=== PATIENT | female | born 1970 | race African-American/Black ===

== ENCOUNTER 2019-05-06 07:50 | Day surgery (SDC) | payer BC, MEDICAID ==
[~2019-05-06 07:50] MED LIST: Midazolam 1 MG/ML 2 ML SDV ONE; Propofol 200 MG/20 ML SDV ONE; fentaNYL 100 MCG/2 ML SDV ONE
[2019-05-06] MEDS ORDERED: Acetaminophen 500 MG Tab PO ONE (08:30)
[2019-05-06] MEDS ORDERED: Topiramate 25 MG Tab PO ONE (08:35)
[2019-05-06] MEDS ORDERED: Lidocaine 1% with EPINEPHrine 1:100,000 50 ML MDV ONE (08:36)
[2019-05-06] MEDS ORDERED: Bupivacaine 0.5% 50 ML MDV ONE (08:36)
[2019-05-06] MEDS ORDERED: Dextrose 5%-Lactated Ringers 1,000 ML IV SCH (09:15)
[2019-05-06] MEDS ORDERED: Albuterol/Ipratropium 3.0-0.5 MG/3 ML Neb Soln NEB ONE (09:15)
[2019-05-06] MEDS ORDERED: fentaNYL 100 MCG/2 ML SDV IVPUSH ONE (10:58)
[2019-05-06] MEDS ORDERED: diphenhydrAMINE 25 MG Cap PO ONE (12:11)
--- NOTE | 2019-05-16 11:30 | OR ---
DATE OF PROCEDURE: 05/06/2019 SURGEON: Ton Moreira MD PREOPERATIVE DIAGNOSIS: Right inguinal lymphadenopathy. POSTOPERATIVE DIAGNOSIS: Right inguinal lymphadenopathy. OPERATIVE PROCEDURE: Right inguinal lymph node biopsy ([id number]). ANESTHESIA: Local plus IV sedation. INDICATION FOR PROCEDURE: This is a 48-year-old presenting with an area of lymphadenopathy involving the right inguinal area. The patient's history is notable for roughly 20-pound weight loss over roughly the last 2 months. She does also have a history of tuberculosis and treated with a course of antituberculosis medications in 2010. The plan is to proceed with a right inguinal exploration and excision of series of enlarged lymph nodes for histologic, as well as microbiologic workup. Potential risks including bleeding and infection were reviewed, and the patient wishes to proceed. DETAILS OF PROCEDURE: The patient was taken to the operating room and placed in supine position. IV sedation was administered, after the right groin and surrounding areas were prepped and draped. The right inguinal area was anesthetized with 1% lidocaine. An incision was made in line with the inguinal crease and carried down through the skin and subcutaneous tissue, and through the superficial fascia. A series of lymph nodes were then easily identified and a total of 4 lymph nodes were removed, the largest of which was roughly around 1 cm in size. These were removed by means of electrocautery dividing the lymphatic and vascular attachment nodes as they were encountered. Two of the lymph nodes were then bisected and portions of those nodes sent for full microbiologic workup, and the remaining of the ld tissue was sent for histologic evaluation. Minimal bleeding from the biopsy sites was seen. The incision was then closed with some 3-0 and 4-0 Vicryl stitch deep and Steri-Strips applied. The patient was taken to the recovery room in satisfactory condition. There were no evident complications. The plan will be to have the patient follow up with her primary provider, JACK Garcia, in 1 week and I will see her back on 05/18/2019. Ton Moreira MD /[id number]
== END 2019-05-06 13:30 | disposition home or self-care (01) ==
LOC: JP.SDS 07:50
PROVIDERS: ATTEND Surgery
DX: R59.0 Localized enlarged lymph nodes (principal); J45.909 Unspecified asthma, uncomplicated; Z91.040 Latex allergy status
CPT/HCPCS: 38531; 87015; 87070; 87102; 87116; 87205; 87206; 87220; 88305; 88341; 88342; 94640; A9270; J2250; J2704; J3010; J3490; J7121; J7620-GY

== ENCOUNTER 2019-12-06 10:50 | Emergency (ER) | payer MEDICAID ==
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
== END 2019-12-06 11:59 | disposition home or self-care (01) ==
LOC: JP.ED 10:50
DX: M25.511 Pain in right shoulder (principal); F19.982 Other psychoactive substance use, unspecified with psychoactive substance-induced sleep disorder; I10 Essential (primary) hypertension; J45.909 Unspecified asthma, uncomplicated; F41.9 Anxiety disorder, unspecified; Z88.0 Allergy status to penicillin; Z91.018 Allergy to other foods; Z91.040 Latex allergy status; Z91.012 Allergy to eggs; Z91.048 Other nonmedicinal substance allergy status; Z79.899 Other long term (current) drug therapy; Z98.890 Other specified postprocedural states
CPT/HCPCS: 99284

== ENCOUNTER 2020-01-25 16:02 | Emergency (ER) | payer MEDICAID | END 2020-01-25 17:11 | disposition left against medical advice (07) | LOC: JP.ED 16:02 | DX: Z53.21 Procedure and treatment not carried out due to patient leaving prior to being seen by health care provider (principal) ==

== ENCOUNTER 2020-02-29 17:13 | Emergency (ER) | payer MEDICAID ==
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
== END 2020-02-29 18:13 | disposition home or self-care (01) ==
LOC: JP.ED 17:13
DX: H60.13 Cellulitis of external ear, bilateral (principal); F41.9 Anxiety disorder, unspecified; I10 Essential (primary) hypertension; J45.909 Unspecified asthma, uncomplicated; Z91.040 Latex allergy status; Z88.0 Allergy status to penicillin; Z91.012 Allergy to eggs; Z91.018 Allergy to other foods; Z88.8 Allergy status to other drugs, medicaments and biological substances; Z90.49 Acquired absence of other specified parts of digestive tract; Z90.710 Acquired absence of both cervix and uterus; Z79.899 Other long term (current) drug therapy
CPT/HCPCS: 99283

== ENCOUNTER 2020-03-16 17:32 | Emergency (ER) | payer BC, MEDICAID ==
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
== END 2020-03-16 18:46 | disposition home or self-care (01) ==
LOC: JP.ED 17:32
DX: K13.79 Other lesions of oral mucosa (principal); F41.9 Anxiety disorder, unspecified; Z88.0 Allergy status to penicillin; Z91.040 Latex allergy status; Z88.8 Allergy status to other drugs, medicaments and biological substances; Z91.018 Allergy to other foods; Z91.012 Allergy to eggs; Z90.710 Acquired absence of both cervix and uterus; Z90.49 Acquired absence of other specified parts of digestive tract; Z79.899 Other long term (current) drug therapy
CPT/HCPCS: 99282

== ENCOUNTER 2020-05-27 20:48 | Emergency (ER) | payer MEDICAID ==
[2020-05-27] MEDS ORDERED: Sodium Chloride 0.9% 10 ML Syringe FLUSH PRN (21:27)
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
[2020-05-27] MEDS ORDERED: Sodium Chloride 0.9% 10 ML Syringe FLUSH ONE (21:43)
[2020-05-27] MEDS ORDERED: Sodium Chloride 0.9% 100 ML IV SCH (21:45)
[2020-05-27] MEDS ORDERED: Iopamidol 612 MG/ML 100 ML Bottle IV SCH (21:45)
[2020-05-27] MEDS ORDERED: Aluminum Hydroxide/Magnesium Hydroxide/Simethicone Susp 30 ML Cup PO ONE (22:14)
--- NOTE | 2020-05-27 22:47 | CRLCT ---
Indication: Right upper quadrant pain Technique: Contrast enhanced axial CT imaging through the abdomen and pelvis. 100 mL Isovue-300 contrast agent was administered intravenously. Sagittal and coronal reconstructions are provided. Comparison: CT abdomen pelvis with contrast 05/19/2019 Findings: No abnormalities are demonstrated relating to the liver, spleen, pancreas, adrenal glands, and kidneys. Cholecystectomy clips are noted. The portal vein is patent. The abdominal aorta is normal in caliber. There is no abdominal lymphadenopathy. Jennifer-en-Y gastric bypass changes are noted. There are few nonspecific prominent small-bowel loops in the mid abdomen, without evidence of bowel obstruction. The appendix is noninflamed. There is no colonic wall thickening, mesenteric edema, or intraperitoneal free fluid. Prominent fecal material is noted throughout the colon, suggesting constipation. The urinary bladder is unremarkable. The uterus is absent. There is no adnexal mass or pelvic lymphadenopathy. Degenerative changes are noted in the spine. There is mild level convex lumbar spinal curvature apex at L3. the included lung bases are clear. Impression: 1. No acute process demonstrated in the abdomen and pelvis. 2. Prominent colonic stool, suggesting constipation. Please note that all CT scans at this facility use dose modulation, iterative reconstruction, and/or weight-based dosing when appropriate to reduce radiation dose to as low as reasonably achievable. Dictated by Gayla Worrell MD @ May 27 2020 10:36PM Signed by Dr. Gayla Worrell @ May 27 2020 10:45PM
== END 2020-05-27 22:40 | disposition home or self-care (01) ==
LOC: JP.ED 20:48
DX: R14.3 Flatulence (principal); R19.7 Diarrhea, unspecified; I10 Essential (primary) hypertension; J45.909 Unspecified asthma, uncomplicated; G40.909 Epilepsy, unspecified, not intractable, without status epilepticus; Z86.73 Personal history of transient ischemic attack (TIA), and cerebral infarction without residual deficits; Z79.899 Other long term (current) drug therapy; Z91.048 Other nonmedicinal substance allergy status; Z91.040 Latex allergy status; Z88.0 Allergy status to penicillin; Z91.018 Allergy to other foods; Z91.012 Allergy to eggs
CPT/HCPCS: 36415; 74177; 80053; 81001; 83690; 85025; 99284; A9270; Q9967; 99283

== ENCOUNTER 2020-06-11 07:42 | Emergency (ER) | payer MEDICAID ==
[2020-06-11] MEDS ORDERED: Mupirocin Oint 22 GM Tube TOP ONE (08:40)
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
== END 2020-06-11 09:04 | disposition home or self-care (01) ==
LOC: JP.ED 07:42
DX: S80.812A Abrasion, left lower leg, initial encounter (principal); I10 Essential (primary) hypertension; J45.909 Unspecified asthma, uncomplicated; Z88.1 Allergy status to other antibiotic agents; Z91.040 Latex allergy status; Z88.8 Allergy status to other drugs, medicaments and biological substances; Z88.0 Allergy status to penicillin; Z91.012 Allergy to eggs; Z91.018 Allergy to other foods; Z79.899 Other long term (current) drug therapy; X58.XXXA Exposure to other specified factors, initial encounter
CPT/HCPCS: 99282; 99283; A9270-GY

== ENCOUNTER 2021-01-28 11:19 | Emergency (ER) | payer MEDICAID ==
[2021-01-28] MEDS ORDERED: Acetaminophen 500 MG Tab PO ONE (12:31)
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
[2021-01-28] MEDS ORDERED: Lisinopril 10 MG Tab PO ONE (13:29)
[2021-01-28] MEDS ORDERED: Hydrochlorothiazide 25 MG Tab PO ONE (13:30)
[2021-01-28] MEDS ORDERED: Potassium Chloride 20 MEQ Tab.ER PO ONE (14:04)
== END 2021-01-28 14:19 | disposition home or self-care (01) ==
LOC: JP.ED 11:19
DX: I10 Essential (primary) hypertension (principal); R60.0 Localized edema; I25.2 Old myocardial infarction; J45.909 Unspecified asthma, uncomplicated; K21.9 Gastro-esophageal reflux disease without esophagitis; M06.9 Rheumatoid arthritis, unspecified; Z91.018 Allergy to other foods; Z88.1 Allergy status to other antibiotic agents; Z88.7 Allergy status to serum and vaccine; Z88.8 Allergy status to other drugs, medicaments and biological substances; Z91.040 Latex allergy status; Z88.0 Allergy status to penicillin; Z91.012 Allergy to eggs; Z79.899 Other long term (current) drug therapy
CPT/HCPCS: 36415; 80048; 81001; 99284; A9270

== ENCOUNTER 2021-03-19 13:30 | Emergency (ER) | payer MEDICAID ==
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
== END 2021-03-19 15:46 | disposition home or self-care (01) ==
LOC: JP.ED 13:30
DX: M79.2 Neuralgia and neuritis, unspecified (principal); I10 Essential (primary) hypertension; I25.2 Old myocardial infarction; J45.909 Unspecified asthma, uncomplicated; M06.9 Rheumatoid arthritis, unspecified; Z88.7 Allergy status to serum and vaccine; Z91.018 Allergy to other foods; Z88.1 Allergy status to other antibiotic agents; Z88.8 Allergy status to other drugs, medicaments and biological substances; Z91.040 Latex allergy status; Z88.0 Allergy status to penicillin; Z91.012 Allergy to eggs; Z79.899 Other long term (current) drug therapy
CPT/HCPCS: 99283

== ENCOUNTER 2021-08-29 07:59 | Day surgery (SDC) | payer MEDICAID ==
[2021-08-29] MEDS: Lactated Ringers 1,000 ML IV SCH (08:12)
[2021-08-29] MEDS ORDERED: Propofol 200 MG/20 ML SDV ONE (09:27)
== END 2021-08-29 11:26 | disposition home or self-care (01) ==
LOC: JP.SDS 07:59
PROVIDERS: ATTEND Family Medicine
DX: Z12.11 Encounter for screening for malignant neoplasm of colon (principal); K29.70 Gastritis, unspecified, without bleeding; R13.10 Dysphagia, unspecified; K31.7 Polyp of stomach and duodenum; J45.909 Unspecified asthma, uncomplicated; Z86.73 Personal history of transient ischemic attack (TIA), and cerebral infarction without residual deficits; Z88.8 Allergy status to other drugs, medicaments and biological substances; Z98.84 Bariatric surgery status
CPT/HCPCS: J2250; J2704; J3010; J7120

== ENCOUNTER 2022-08-01 07:44 | Day surgery (SDC) | payer MEDICAID ==
[2022-08-01 08:28] LABS: A/G RATIO 0.8 (1.2-2.2); ALANINE AMINOTRANSFERASE,ALT 32 U/L (12-78); ALBUMIN 3.2 g/dL (3.4-5.0); ALKALINE PHOSPHATASE 188 U/L (46-116); ANION GAP 11.1 mmol/L (5.0-14.0); ASPARTATE AMNIOTRANSFERASE,AST 24 U/L (15-37); BILIRUBIN TOTAL 0.3 mg/dL (0.2-1.0); BLOOD UREA NITROGEN,BUN 12 mg/dL (7-18); CARBON DIOXIDE,CO2 29 mmol/L (21-32); CHLORIDE,CL 103 mmol/L (100-108); CREATININE 0.9 mg/dL (0.6-1.0); EST CRCL DRUG DOSING (CG) 73.76 mL/min; ESTIMATED GFR 77 mL/min (>60); GLUCOSE RANDOM 97 mg/dL (74-106); POTASSIUM,K 4.1 mmol/L (3.6-5.2); PROTEIN TOTAL,TP 7.2 g/dL (6.4-8.2); SODIUM,NA 139 mmol/L (140-148)
[2022-08-01] MEDS ORDERED: Propofol 200 MG/20 ML SDV ONE (08:28)
[2022-08-01] MEDS ORDERED: fentaNYL 100 MCG/2 ML SDV ONE (08:28)
[2022-08-01] MEDS ORDERED: MVI, Adult with Vitamin K 10 ML, Thiamine 200 MG, Zinc/Copper/Manganese/Selenium 1 ML i... IV ONE ×4 (08:30)
[2022-08-01] MEDS ORDERED: Lactated Ringers 1,000 ML IV ONE (08:33)
[2022-08-01] MEDS ORDERED: Ondansetron 4 MG/2 ML SDV ONE (08:51)
== END 2022-08-01 11:21 | disposition home or self-care (01) ==
LOC: JP.SDS 07:44
PROVIDERS: ATTEND Student in an Organized Health Care Education/Training Program
DX: K29.50 Unspecified chronic gastritis without bleeding (principal); K31.9 Disease of stomach and duodenum, unspecified; F41.9 Anxiety disorder, unspecified; J45.909 Unspecified asthma, uncomplicated; M25.511 Pain in right shoulder; G89.29 Other chronic pain; G40.909 Epilepsy, unspecified, not intractable, without status epilepticus; J45.990 Exercise induced bronchospasm; G43.009 Migraine without aura, not intractable, without status migrainosus; D50.9 Iron deficiency anemia, unspecified; F33.2 Major depressive disorder, recurrent severe without psychotic features; E55.9 Vitamin D deficiency, unspecified; I47.1 Supraventricular tachycardia; I10 Essential (primary) hypertension; Z91.018 Allergy to other foods; Z88.1 Allergy status to other antibiotic agents; Z88.8 Allergy status to other drugs, medicaments and biological substances; Z91.041 Radiographic dye allergy status; Z91.010 Allergy to peanuts; Z79.899 Other long term (current) drug therapy; Z86.73 Personal history of transient ischemic attack (TIA), and cerebral infarction without residual deficits; Z88.0 Allergy status to penicillin
CPT/HCPCS: 36415; 43239; 80053; 88305; 93005; J2405; J2704; J3010; J3411; J7120; 93010; J3490

== ENCOUNTER 2022-09-12 07:22 | Day surgery (SDC) | payer MEDICAID ==
[2022-09-12] MEDS ORDERED: fentaNYL 50 MCG/ML SDV ONE (08:00)
[2022-09-12] MEDS ORDERED: Propofol 200 MG/20 ML SDV ONE (08:00)
[2022-09-12] MEDS ORDERED: Midazolam 1 MG/ML 2 ML SDV ONE (08:00)
[2022-09-12] MEDS ORDERED: Lactated Ringers 1,000 ML IV SCH (08:00)
== END 2022-09-12 09:43 | disposition home or self-care (01) ==
LOC: JP.SDS 07:22
PROVIDERS: ATTEND Student in an Organized Health Care Education/Training Program
DX: K29.50 Unspecified chronic gastritis without bleeding (principal); K31.A0 Gastric intestinal metaplasia, unspecified; K31.89 Other diseases of stomach and duodenum; Z87.19 Personal history of other diseases of the digestive system
CPT/HCPCS: 43239; 88305; J2250; J2704; J3010; J7120

== ENCOUNTER 2023-09-15 14:48 | Emergency (ER) | payer MEDICAID ==
[2023-09-15] MEDS: Prochlorperazine 10 MG/2 ML SDV IVPUSH ONE (16:50)
[2023-09-15] MEDS: diphenhydrAMINE 50 MG/ML SDV IVPUSH ONE (16:53)
[2023-09-15] MEDS: Ketorolac 30 MG/ML SDV IVPUSH ONE (16:56)
[2023-09-15] MEDS: Sodium Chloride 0.9% 10 ML Syringe FLUSH PRN (16:59)
== END 2023-09-15 18:17 | disposition home or self-care (01) ==
LOC: JP.ED 14:48
DX: G43.909 Migraine, unspecified, not intractable, without status migrainosus (principal); I10 Essential (primary) hypertension; E78.00 Pure hypercholesterolemia, unspecified; E11.9 Type 2 diabetes mellitus without complications; Z90.49 Acquired absence of other specified parts of digestive tract; Z90.710 Acquired absence of both cervix and uterus; Z79.899 Other long term (current) drug therapy; Z79.84 Long term (current) use of oral hypoglycemic drugs; Z88.0 Allergy status to penicillin; Z91.010 Allergy to peanuts; Z91.011 Allergy to milk products; Z91.012 Allergy to eggs; Z91.018 Allergy to other foods; Z91.040 Latex allergy status; Z88.8 Allergy status to other drugs, medicaments and biological substances; Z91.041 Radiographic dye allergy status; Z88.1 Allergy status to other antibiotic agents; Z88.7 Allergy status to serum and vaccine
CPT/HCPCS: 96374; 96375; 99283; 99283-25; J0780; J1200; J1885; J3490

== ENCOUNTER 2023-09-28 08:54 | Emergency (ER) | payer MEDICAID | END 2023-09-28 11:36 | disposition home or self-care (01) | LOC: JP.ED 08:54 | DX: S93.402A Sprain of unspecified ligament of left ankle, initial encounter (principal); S90.32XA Contusion of left foot, initial encounter; I10 Essential (primary) hypertension; E78.00 Pure hypercholesterolemia, unspecified; E11.9 Type 2 diabetes mellitus without complications; Z90.49 Acquired absence of other specified parts of digestive tract; Z90.710 Acquired absence of both cervix and uterus; Z79.84 Long term (current) use of oral hypoglycemic drugs; Z79.899 Other long term (current) drug therapy; Z88.0 Allergy status to penicillin; Z88.1 Allergy status to other antibiotic agents; Z91.018 Allergy to other foods; Z91.010 Allergy to peanuts; Z91.011 Allergy to milk products; Z91.012 Allergy to eggs; Z91.048 Other nonmedicinal substance allergy status; Z88.7 Allergy status to serum and vaccine; Z91.040 Latex allergy status; Z88.8 Allergy status to other drugs, medicaments and biological substances; W18.40XA Slipping, tripping and stumbling without falling, unspecified, initial encounter | CPT/HCPCS: 73600-LT; 73620-LT; 99283 ==

== ENCOUNTER 2024-01-01 08:10 | Day surgery (SDC) | payer MEDICAID ==
[2024-01-01] MEDS ORDERED: fentaNYL 50 MCG/ML SDV ONE (09:06)
[2024-01-01] MEDS ORDERED: Propofol 200 MG/20 ML SDV ONE ×2 (09:06→09:57)
[2024-01-01] MEDS ORDERED: Midazolam 1 MG/ML 2 ML SDV ONE (09:06)
[2024-01-01] MEDS: Lactated Ringers 1,000 ML IV SCH (09:45)
== END 2024-01-01 11:30 | disposition home or self-care (01) ==
LOC: JP.SDS 08:10
PROVIDERS: ATTEND Family Medicine
DX: D50.9 Iron deficiency anemia, unspecified (principal); Z98.84 Bariatric surgery status
CPT/HCPCS: 43235; 45378; J2250; J2704; J3010; J7120